=== PATIENT | female | born 1955 | race Caucasian/White ===

== ENCOUNTER 2019-02-04 16:25 | Outpatient (REF) | payer BC, SELFPAY ==
[2019-02-04 20:40] LABS: Absolute Basophil Count 0.03 k/cumm (0.0-0.2); Absolute Eosinophil Count 0.18 k/cumm (0.0-0.7); Absolute Lymphocyte Count 2.45 k/cumm (1.2-3.4); Absolute Monocyte Count 0.45 k/cumm (0.11-0.7); Absolute Neutrophil Count 3.37 k/cumm (1.2-6.7); Basophils % 0.5; Eosinophils % 2.8; HCT 43.3 % (36.0-46.0); HGB 14.3 g/dL (12.0-15.5); Lymphocytes % 37.8; Mean Corpuscular Hemoglobin 31.2 pg (27.0-33.0); Mean Corpuscular Volume 94.5 fL (80-95); Mean Platelet Volume 12.1 fL (8.0-11.0); Monocytes % 6.9; Platelet Count 203 x1000/uL (130-400); RBC 4.58 m/cumm (4.00-5.20); RBC Distribution Width 12.9 % (11.7-14.6); White Blood Cell Count 6.48 k/cumm (4.4-10.8)
[2019-02-04 21:06] LABS: ALT 172 U/L (14-59); AST 104 U/L (15-37); Alkaline Phosphatase 137 U/L (46-116); Anion Gap 7.9 mmol/L (3-11); BUN 14 mg/dL (7-18); Bilirubin, Total 0.4 mg/dL (0.2-1.0); CO2 31.1 mmol/L (21.0-32.0); Calcium 9.3 mg/dL (8.5-10.1); Chloride 104 mmol/L (98-107); Glucose 90 mg/dL (74-106); Potassium 4.5 mmol/L (3.5-5.1); Sodium 143 mmol/L (136-145); Total Protein 7.1 g/dL (6.4-8.2)
[2019-02-06 05:08] LABS: Vitamin D 25 Total 5.7 ng/ml (30-100)
[2019-02-07 10:07] LABS: Hepatitis C Ab w Rflx HCV PCR Negative (Negative)
== END 2019-02-04 16:45 ==
LOC: NCHCN 16:25
PROVIDERS: Nurse Practitioner Family; PCP Family Medicine; Visit Provider Internal Medicine
DX: R60.0 Localized edema (principal); I86.8 Varicose veins of other specified sites; Z11.59 Encounter for screening for other viral diseases
CPT/HCPCS: 80053; 82306; 86803; 84443; 85025

== ENCOUNTER 2019-02-12 02:14 | Outpatient (CLI) | payer BC, SELFPAY ==
--- NOTE | 2019-02-12 07:33 | DI.US_ITS ---
EXAM: US ABDOMEN CLINICAL HISTORY: ELEVATED TRANSAMINASES, R74.0 TECHNIQUE: Ultrasound performed using standard protocol. COMPARISON: No exams were available for comparison FINDINGS: The aorta is normal in diameter. The liver is normal in size and echogenicity. No focal liver lesi ons or biliary dilatation is seen. The gallbladder has a normal appearance, without evidence of ston es or wall thickening. A 4.9 centimeter cyst is noted on the right kidney. Left kidney is unremarka ble. The spleen is normal in size. The pancreas is unremarkable. There is no ascites. IMPRESSION: Right renal cyst, otherwise negative.
== END 2019-02-12 02:34 ==
PROVIDERS: PCP Family Medicine; Visit Provider Nurse Practitioner Family
DX: N28.1 Cyst of kidney, acquired (principal); R74.0 Nonspecific elevation of levels of transaminase and lactic acid dehydrogenase [LDH]
CPT/HCPCS: 76700

== ENCOUNTER 2019-02-26 08:53 | Outpatient (REF) | payer BC, SELFPAY ==
[2019-02-26 12:10] LABS: ALT 33 U/L (14-59); AST 21 U/L (15-37); Albumin 4.2 g/dL (3.4-5.0); Alkaline Phosphatase 105 U/L (46-116); Bilirubin, Total 0.7 mg/dL (0.2-1.0); Total Protein 7.3 g/dL (6.4-8.2)
[2019-02-26 13:57] LABS: Bilirubin, Direct 0.15 mg/dL (0.00-0.20)
== END 2019-02-26 09:13 ==
LOC: NCHCN 08:53
PROVIDERS: PCP Nurse Practitioner Family; Visit Provider Nurse Practitioner Family
DX: R74.0 Nonspecific elevation of levels of transaminase and lactic acid dehydrogenase [LDH] (principal)
CPT/HCPCS: 80076

== ENCOUNTER 2019-03-05 01:14 | Outpatient (CLI) | payer BC, SELFPAY ==
--- NOTE | 2019-03-05 16:19 | DI.MAMMO_ITS ---
EXAM: MAMMO SCREENING CLINICAL HISTORY: SCREENING Z12.39, FAM HX BREAST CANCER Z80.3 TECHNIQUE: Mammograms were interpreted according to the usual protocol including computer analysis w [employer] CAD system, tomosynthesis and C-view imaging. FINDINGS: The breasts are heterogeneously dense. No dominant mass or clumped microcalcification is identified in either breast. Current examination is compared with previous examinations including October and there has been no gross interval change in appearance in comparison with the previous studies. IMPRESSION: No specific evidence of malignancy at this time. Routine screening examinations are suggested at year ly intervals due to the family history of breast carcinoma. Category 1. Breast density, category C. BI-RADS Cat 1 - Negative. Breast Density - Category C - Heterogeneously dense.
== END 2019-03-05 01:34 ==
PROVIDERS: PCP Nurse Practitioner Family; Visit Provider Nurse Practitioner Family
DX: Z12.31 Encounter for screening mammogram for malignant neoplasm of breast (principal); Z80.3 Family history of malignant neoplasm of breast
CPT/HCPCS: 77063; 77067

== ENCOUNTER 2019-04-18 17:42 | Outpatient (REF) | payer BC, SELFPAY ==
[2019-04-21 07:18] LABS: Vitamin D 25 Total 20.3 ng/ml (30-100)
== END 2019-04-18 18:02 ==
LOC: NCHCN 17:42
PROVIDERS: PCP Nurse Practitioner Family; Visit Provider Nurse Practitioner Family
DX: E55.9 Vitamin D deficiency, unspecified (principal)
CPT/HCPCS: 82306

== ENCOUNTER 2020-03-08 15:46 | Outpatient (REF) | payer BC, SELFPAY ==
--- NOTE | 2020-03-08 14:30 | PAPFT_PTH ---
PATIENT: Lisha Neil LOC: [facility] U#:[id number] AGE/SX: 65/F ROOM: RE03/08/[address]: Na Mora : 1955 BED: DIS: 03/08/2020 SPEC #: [id number] RECD: 03/09/20 12:49 STATUS: RALF JEFF #: [id number] DUANE: 03/08/20 14:[address]: Na Mora DEPT: [facility] Cytology RECD BY: Amalia Crane Tissues: 1 - CX/ENDOCX FOR PAP SMEARS Procedures: PAP THIN PREP/UVM Screening HPV DNA PROBE Comments: [id number]
[2020-03-08 21:22] LABS: Abs Immature Grans 0.01 10^3/uL (0.0-0.06); Absolute Basophil Count 0.05 10^3/uL (0.0-0.2); Absolute Eosinophil Count 0.19 10^3/uL (0.0-0.7); Absolute Lymphocyte Count 2.56 10^3/uL (1.2-3.4); Absolute Monocyte Count 0.45 10^3/uL (0.1-0.8); Absolute Neutrophil Count 3.12 10^3/uL (1.2-6.7); Basophils % 0.8; HCT 41.3 % (36.0-46.0); HGB 13.6 g/dL (11.2-15.7); Immature Grans % 0.2; Lymphocytes % 40.1; MCH 31.2 pg (27.0-33.0); MCHC 32.9 % (32.0-36.0); MCV 94.7 fL (80-95); MPV 12.1 fL (8.0-11.0); Monocytes % 7.1; Neutrophils % 48.8; Nucleated RBC 0 %; Platelet Count 185 10^3/uL (130-400); RBC 4.36 10^6/uL (3.93-5.22); RDW 12.6 % (11.7-14.6); RDW-SD 43.9 fL; WBC 6.38 10^3/uL (4.4-10.8)
[2020-03-08 21:26] LABS: Iron 45 ug/dL (50-170); Total Iron Binding Capacity 246 ug/dL (250-450); Transferrin Sat 18 % (15-50)
[2020-03-08 21:36] LABS: ALT 32 U/L (14-59); AST 22 U/L (15-37); Albumin 4.4 g/dL (3.4-5.0); Alkaline Phosphatase 78 U/L (46-116); Anion Gap 9.4 mmol/L (3-11); BUN 12 mg/dL (7-18); Bilirubin, Total 0.6 mg/dL (0.2-1.0); CO2 28.6 mmol/L (21.0-32.0); CREATININE 0.7 mg/dL (0.55-1.02); Calcium 9.6 mg/dL (8.5-10.1); Chloride 103 mmol/L (98-107); Glucose 95 mg/dL (74-106); Sodium 141 mmol/L (136-145); TSH (W/Ref FT4) 0.63 uIU/mL (0.36-3.74); Total Protein 7.8 g/dL (6.4-8.2)
[2020-03-10 09:55] LABS: HIV-1/2 Ag & Ab Screen Negative (Negative)
== END 2020-03-08 16:06 ==
LOC: NCHCN 15:46
PROVIDERS: PCP Nurse Practitioner Family; Visit Provider Nurse Practitioner Family
DX: Z12.4 Encounter for screening for malignant neoplasm of cervix (principal); Z00.00 Encounter for general adult medical examination without abnormal findings; Z11.51 Encounter for screening for human papillomavirus (HPV); F43.0 Acute stress reaction; N39.3 Stress incontinence (female) (male); L65.9 Nonscarring hair loss, unspecified; R06.83 Snoring; E55.9 Vitamin D deficiency, unspecified; R60.0 Localized edema; Z80.3 Family history of malignant neoplasm of breast; Z11.4 Encounter for screening for human immunodeficiency virus [HIV]
CPT/HCPCS: 80053; 82306; 87389; 88142; 83540; 83550; 83735; 84443; 85025; 87624

== ENCOUNTER 2020-03-16 00:59 | Outpatient (CLI) | payer BC, SELFPAY ==
--- NOTE | 2020-03-16 15:45 | DI.MAMMO_ITS ---
EXAM: MG MAMMO SCREENING CLINICAL HISTORY: SCREENING,Z12.39, FAMILY H/O BREAST CA TECHNIQUE: Bilateral full field digital CC and MLO mammographic images were obtained with 3D tomosyn thesis and utilizing computer aided detection (CAD). COMPARISON: Available for comparison. FINDINGS: Masses/Architectural Distortion: None seen. Microcalcifications: No suspicious pleomorphic-type are seen. Skin Thickening/Nipple Retraction: None. IMPRESSION: 1. No significant interval change with no specific features of malignancy noted. 2. Unless there is more urgent need, screening mammography is recommended, as per [employer] guidelines. BI-RADS Category 1 - Negative Breast Density - Category C - Heterogeneously dense Breast density category C or D implies that the patient has dense breast tissue. Dense breast tissue is very common and is not abnormal but dense breast tissue can make it harder to find cancer on a ma mmogram. Also, dense breast tissue may increase their breast cancer risk. This information about the result of the mammogram report was provided to the patient to raise their awareness. Use this report when you speak with the patient about their risks for breast cancer, which includes their family hist ory. At that time, you may recommend for more screening tests (Ultrasound or MRI) as they might be us eful based on their risk. A negative radiographic report should not delay biopsy if a dominant or clinically suspicious mass is present. Up to ten percent of cancers are not identified on mammography. A negative report may reinforce clinical impression. Adenosis and dense breasts may obscure an underlying neoplasm. False positive reports average 6 to 10%. Patient will receive a letter notifying them of these results.
== END 2020-03-16 01:00 ==
LOC: DI 00:59
PROVIDERS: PCP Nurse Practitioner Family; Visit Provider Nurse Practitioner Family
DX: Z12.31 Encounter for screening mammogram for malignant neoplasm of breast (principal); Z80.3 Family history of malignant neoplasm of breast
CPT/HCPCS: 77063; 77067

== ENCOUNTER 2020-06-22 16:26 | Outpatient (REF) | payer BC, SELFPAY ==
[2020-06-22 21:02] LABS: Ferritin 61 ng/mL (8-252)
[2020-06-22 21:34] LABS: Iron 54 ug/dL (50-170); Total Iron Binding Capacity 216 ug/dL (250-450); Transferrin Sat 25 % (15-50)
[2020-06-24 04:37] LABS: Vitamin D 25 Total 28.5 ng/mL (30-100)
== END 2020-06-22 16:27 | disposition home or self-care (01) ==
LOC: NCHCN 16:26
PROVIDERS: PCP Nurse Practitioner Family; Visit Provider Nurse Practitioner Family
DX: E61.1 Iron deficiency (principal); E55.9 Vitamin D deficiency, unspecified
CPT/HCPCS: 82306; 82728; 83540; 83550

== ENCOUNTER 2020-09-03 12:45 | Outpatient (REF) | payer BC, SELFPAY ==
[2020-09-03 15:29] LABS: Iron 94 ug/dL (50-170)
== END 2020-09-03 12:46 | disposition home or self-care (01) ==
LOC: NCHCN 12:45
PROVIDERS: PCP Nurse Practitioner Family; Visit Provider Nurse Practitioner Family
DX: E61.1 Iron deficiency (principal); F43.0 Acute stress reaction; E55.9 Vitamin D deficiency, unspecified; R53.83 Other fatigue; L65.9 Nonscarring hair loss, unspecified
CPT/HCPCS: 83540

== ENCOUNTER 2021-04-12 15:56 | Outpatient (REF) | payer BC, SELFPAY ==
[2021-04-12 15:36] LABS: Abs Immature Grans 0.02 10^3/uL (0.0-0.06); Absolute Basophil Count 0.03 10^3/uL (0.0-0.2); Absolute Eosinophil Count 0.18 10^3/uL (0.0-0.7); Absolute Lymphocyte Count 2.34 10^3/uL (1.2-3.4); Absolute Monocyte Count 0.51 10^3/uL (0.1-0.8); Absolute Neutrophil Count 3.61 10^3/uL (1.2-6.7); Basophils % 0.4; Eosinophils % 2.7; HCT 40.6 % (36.0-46.0); HGB 13.3 g/dL (11.2-15.7); Immature Grans % 0.3; MCH 31.7 pg (27.0-33.0); MCHC 32.8 % (32.0-36.0); MCV 96.9 fL (80-95); MPV 12.8 fL (8.0-11.0); Monocytes % 7.6; Nucleated RBC 0 %; Platelet Count 209 10^3/uL (130-400); RBC 4.19 10^6/uL (3.93-5.22); RDW 12.8 % (11.7-14.6); RDW-SD 45.9 fL; WBC 6.69 10^3/uL (4.4-10.8)
[2021-04-12 15:53] LABS: Iron 93 ug/dL (50-170); Total Iron Binding Capacity 234 ug/dL (250-450); Transferrin Sat 40 % (15-50)
[2021-04-12 16:05] LABS: Calculated LDL 115 mg/dL (<100); Cholesterol 179 mg/dL (<200); Ferritin 41 ng/mL (8-252); HDL Cholesterol 31 mg/dL (40-60); Triglyceride 165 mg/dL (<150)
[2021-04-14 04:46] LABS: Vitamin D 25 Total 23.4 ng/mL (30-100)
== END 2021-04-12 15:57 | disposition home or self-care (01) ==
LOC: NCHCN 15:56
PROVIDERS: PCP Nurse Practitioner Family; Visit Provider Nurse Practitioner Family
DX: Z00.00 Encounter for general adult medical examination without abnormal findings (principal); E61.1 Iron deficiency; E55.9 Vitamin D deficiency, unspecified; R53.83 Other fatigue; N20.1 Calculus of ureter; N39.3 Stress incontinence (female) (male)
CPT/HCPCS: 80061; 82306; 82728; 83540; 83550; 85025

== ENCOUNTER 2021-05-09 01:01 | Outpatient (CLI) | payer BC, SELFPAY ==
--- NOTE | 2021-05-09 17:00 | DI.MAMMO_ITS ---
Exam(s) MAMMO SCREENING EXAM: MAMMO SCREENING CLINICAL HISTORY: SCREENING, Z12.39; FAMILY H/O BREAST CA, Z80.3. TECHNIQUE: Bilateral full field digital CC and MLO mammographic images were obtained with 3D tomosyn thesis and utilizing computer aided detection (CAD). COMPARISON: Prior mammograms were reviewed, the most recent being March 2020. There is significant family history here. Mother was diagnosed premenopausal breast cancer. FINDINGS: The fibroglandular tissue pattern is again noted be moderately dense, this somewhat decreasing the se nsitivity of the mammogram for finding hidden underlying lesions. There are no new spiculated masses nor malignant appearing microcalcification groups. Benign microcalcifications are again noted bilaterally. There is no significant architectural distortion nor skin thickening-retraction. IMPRESSION: Dense bilateral fibroglandular tissue. No obvious radiographic evidence of malignancy nor significan t change compared to prior mammograms. Given the density of this patient's fibroglandular tissue and significant family history, I recommend that she undergo bilateral breast ultrasound screening. BI-RADS Category 2 - Benign Findings Breast Density - Category C - Heterogeneously dense Breast density Category C or D implies that the patient has dense breast tissue. Dense breast tissue can make it harder to find cancer on a mammogram. Dense breast tissue is also associated with an incr eased risk of breast cancer. This information about the result of the mammogram report was provided to the patient to raise their awareness. Use this report when you speak with the patient about their risks for breast cancer, which includes their family history. At that time, you may recommend additional screening tests (Ultrasoun d or MRI) as these tests may add significant information. A negative radiographic report should not delay biopsy if a dominant or clinically suspicious mass is present. Up to ten percent of cancers are not identified on mammography. A negative report may reinforce clinical impression. Adenosis and dense breasts may obscure an underlying neoplasm. False positive reports average 6 to 10%. Patient will receive a letter notifying them of these results.
== END 2021-05-09 01:21 ==
PROVIDERS: PCP Nurse Practitioner Family; Visit Provider Nurse Practitioner Family
DX: Z12.31 Encounter for screening mammogram for malignant neoplasm of breast (principal); R92.8 Other abnormal and inconclusive findings on diagnostic imaging of breast
CPT/HCPCS: 77063; 77067

== ENCOUNTER 2022-06-02 00:03 | Outpatient (CLI) | payer BC, SELFPAY ==
--- NOTE | 2022-06-02 15:38 | DI.MAMMO_ITS ---
Exam(s) US BREAST RT LIMITED MG MAMMO SCREENING EXAM: MAMMO SCREENING CLINICAL HISTORY: SCREENING, Z12.39,FAMILY H/O BREAST CA,Z80.3 TECHNIQUE: Mammograms were interpreted according to the usual protocol including computer analysis w ith CAD system, tomosynthesis and C-view imaging. COMPARISON: Mammograms dated 2012 through 2021 Right breast ultrasound 02 June and 02 December 2021 FINDINGS: The breasts are composed of heterogeneously dense fibroglandular densities, Breast Density category C . No suspicious masses or suspicious microcalcifications are seen. No skin thickening or abnormal axillary lymph nodes are seen. There has been no significant change from prior exams. Right breast ultrasound: Stable appearance of ovoid hypoechoic lesion in the upper outer quadrant of the right breast, 4 cm fr om the nipple, now measured at 6 x 3 x 6 millimeters. IMPRESSION: BI-RADS Cat 2 - Benign Findings Yearly screening mammography is recommended. Breast Density Category C, heterogeneously Dense. The mammogram demonstrates the patient's breast tissue is dense. Dense breast tissue is very common a nd is not abnormal but dense breast tissue can make it harder to find cancer on a mammogram. Also, de nse breast tissue may increase breast cancer risk. This information about the result of the mammogram report was provided to the patient to raise their awareness. Use this report when you speak with the patient about their risks for breast cancer, which includes their family history. At that time, you may recommend additional screening tests (Ultrasound or MRI) as they might be useful based on their r isk. A negative radiographic report should not delay biopsy if a dominant or clinically suspicious mass is present. Up to ten percent of cancers are not identified on mammography. A negative report may reinforce clinical impression. Adenosis and dense breasts may obscure an underlying neoplasm. False positive reports average 6 to 10%.
== END 2022-06-02 00:23 ==
LOC: DI 00:03
PROVIDERS: PCP Nurse Practitioner Family; Visit Provider Nurse Practitioner Family
DX: R92.8 Other abnormal and inconclusive findings on diagnostic imaging of breast; Z80.3 Family history of malignant neoplasm of breast
CPT/HCPCS: 76642; 77063; 77067

== ENCOUNTER 2022-11-14 16:43 | Outpatient (REF) | payer BC, SELFPAY ==
[2022-11-14 20:50] LABS: Abs Immature Grans 0.01 10^3/uL (0.0-0.06); Absolute Basophil Count 0.06 10^3/uL (0.0-0.2); Absolute Eosinophil Count 0.21 10^3/uL (0.0-0.7); Absolute Lymphocyte Count 2.48 10^3/uL (1.2-3.4); Absolute Monocyte Count 0.39 10^3/uL (0.1-0.8); Absolute Neutrophil Count 2.63 10^3/uL (1.2-6.7); Eosinophils % 3.6; HCT 42.8 % (36.0-46.0); HGB 14.1 g/dL (11.2-15.7); Immature Grans % 0.2; Lymphocytes % 42.9; MCH 31.2 pg (27.0-33.0); MCHC 32.9 % (32.0-36.0); MCV 95 fL (80-95); MPV 11.8 fL (8.0-11.0); Monocytes % 6.7; Neutrophils % 45.6; Platelet Count 178 10^3/uL (130-400); RBC 4.52 10^6/uL (3.93-5.22); RDW 12.3 % (11.7-14.6); RDW-SD 42.9 fL; WBC 5.78 10^3/uL (4.4-10.8)
[2022-11-14 21:08] LABS: Anion Gap 8.3 mmol/L (3-11); BUN 22 mg/dL (7-18); CO2 27.7 mmol/L (21.0-32.0); CREATININE 0.7 mg/dL (0.55-1.02); Calcium 9.6 mg/dL (8.5-10.1); Chloride 105 mmol/L (98-107); Estimated GFR 95.92 (mL/min/1.73m2); Glucose 81 mg/dL (74-106); Potassium 3.8 mmol/L (3.5-5.1); Sodium 141 mmol/L (136-145); TSH (W/Ref FT4) 0.88 uIU/mL (0.36-3.74)
[2022-11-14 21:15] LABS: Iron 94 ug/dL (50-170); Total Iron Binding Capacity 240 ug/dL (250-450); Transferrin Sat 39 % (15-50)
[2022-11-14 21:54] LABS: Vitamin D 25 Total 32.8 ng/mL (30-100)
[2022-11-14 22:34] LABS: Ferritin 48 ng/mL (8-252); Vitamin B12 506 pg/mL (193-986)
== END 2022-11-14 16:44 | disposition home or self-care (01) ==
LOC: NCHCN 16:43
PROVIDERS: PCP Nurse Practitioner Family; Visit Provider Nurse Practitioner Family
DX: Z00.00 Encounter for general adult medical examination without abnormal findings (principal); R47.01 Aphasia; E55.9 Vitamin D deficiency, unspecified; E61.1 Iron deficiency; L65.9 Nonscarring hair loss, unspecified; I86.8 Varicose veins of other specified sites; R00.2 Palpitations; N20.1 Calculus of ureter
CPT/HCPCS: 80048; 82306; 82607; 82728; 83540; 83550; 84443; 85025

== ENCOUNTER → 2022-12-25 02:25 | Outpatient (CLI) | payer BC, SELFPAY ==
--- NOTE | 2022-12-25 | DI.DEXA_ITS ---
Exam(s) XR DEXA BONE DENSITY W/WO YI EXAM: XR DEXA BONE DENSITY W/WO YI CLINICAL HISTORY: POSTMENOPAUSAL STATE, SCREENING, Z78.0 TECHNIQUE: Domino Horizon C densitometer analysis of left hip, lumbar spine and left forearm. Lat eral survey image of the thoracic and lumbar spine. COMPARISON: No exams were available for comparison FINDINGS: Lateral view of the thoracic and lumbar spine shows no evidence of compression fractures. Bone mineral density measurements of the lumbar spine correspond to a total T-score of -1.2, in the osteopenic range. Bone mineral density measurements of the left hip correspond to a total T-score of -0.9. The femora l neck T-score is -1.7, in the osteopenic range.. Theleft forearm bone mineral density measurements correspond to a T-score of the distal 3rd of -1.1, in the osteopenic range. . IMPRESSION: Osteopenia of the spine, hip and forearm.
== END ==
PROVIDERS: PCP Nurse Practitioner Family; Visit Provider Nurse Practitioner Family
DX: Z13.820 Encounter for screening for osteoporosis (principal); Z78.0 Asymptomatic menopausal state; M85.89 Other specified disorders of bone density and structure, multiple sites
CPT/HCPCS: 77080

== ENCOUNTER → 2023-04-05 03:09 | Outpatient (CLI) | payer BC, SELFPAY ==
--- NOTE | 2023-04-05 | DI.MAMMO_ITS ---
Exam(s) MG MAMMO DIAGNOSTIC BI US BREAST LT LIMITED EXAM: MG MAMMO DIAGNOSTIC BI, left breast ultrasound CLINICAL HISTORY: PAIN LT BREAST, N64.4, MASTODYNIA. COMPARISON: US US BREAST LT LIMITED from 04/05/2023 TECHNIQUE: Craniocaudal and mediolateral oblique Full Field Digital Mammography views of both breast s with Computer Aided Diagnosis followed by Tomosynthesis and left breast ultrasound. FINDINGS: Mammography/Tomosynthesis: Masses/Architectural Distortion: None seen. Microcalcifications: No suspicious pleomorphic-type are seen. Skin Thickening/Nipple Retraction: None. Left breast US: Echotexture: Normal appearance of the glandular tissue. Shadowing: No suspicious foci. Cyst: None. Solid lesions: None seen. Ductal dilation: None. IMPRESSION: 1. No evidence of malignancy is noted. 2. Unless there is more urgent need, follow-up screening mammography is recommended, as per [employer] guidelines. BI-RADS Category 1 - Negative Breast Density - Category C - Heterogeneously dense Breast density category C or D implies that the patient has dense breast tissue. Dense breast tissue is very common and is not abnormal but dense breast tissue can make it harder to find cancer on a ma mmogram. Also, dense breast tissue may increase their breast cancer risk. This information about the result of the mammogram report was provided to the patient to raise their awareness. Use this report when you speak with the patient about their risks for breast cancer, which includes their family hist ory. At that time, you may recommend for more screening tests (Ultrasound or MRI) as they might be us eful based on their risk. A negative radiographic report should not delay biopsy if a dominant or clinically suspicious mass is present. Up to ten percent of cancers are not identified on mammography. A negative report may reinforce clinical impression. Adenosis and dense breasts may obscure an underlying neoplasm. False positive reports average 6 to 10%. Patient will receive a letter notifying them of these results.
== END ==
PROVIDERS: PCP Nurse Practitioner Family; Visit Provider Nurse Practitioner Family
DX: Z12.31 Encounter for screening mammogram for malignant neoplasm of breast (principal); N64.4 Mastodynia; R92.8 Other abnormal and inconclusive findings on diagnostic imaging of breast
CPT/HCPCS: 76642; 77062; 77066; G0279

== ENCOUNTER 2023-12-27 15:01 | Outpatient (REF) | payer BC, SELFPAY ==
[2023-12-27 22:11] LABS: ALT 35 U/L (14-59); AST 28 U/L (15-37); Albumin 4.2 g/dL (3.4-5.0); Alkaline Phosphatase 114 U/L (46-116); Anion Gap 10.3 mmol/L (3-11); BUN 20 mg/dL (7-18); Bilirubin, Total 0.43 mg/dL (0.2-1.0); CO2 27.7 mmol/L (21.0-32.0); CREATININE 0.7 mg/dL (0.55-1.02); Calcium 9.3 mg/dL (8.5-10.1); Chloride 105 mmol/L (98-107); Estimated GFR 95.32 (mL/min/1.73m2); Glucose 86 mg/dL (74-106); Potassium 4.7 mmol/L (3.5-5.1); Sodium 143 mmol/L (136-145); TSH (W/Ref FT4) 1.05 uIU/mL (0.36-3.74); Total Protein 7.8 g/dL (6.4-8.2)
[2023-12-27 22:30] LABS: Iron 43 ug/dL (50-170); Total Iron Binding Capacity 246 ug/dL (250-450); Transferrin Sat 17 % (15-50)
[2023-12-27 22:58] LABS: Ferritin 66 ng/mL (8-252); Vitamin D 25 Total 29.2 ng/mL (30-100)
[2023-12-28 18:54] LABS: Hepatitis C Ab w Rflx HCV PCR Negative (Negative)
== END 2023-12-27 15:02 | disposition home or self-care (01) ==
LOC: NCHCN 15:01
PROVIDERS: PCP Nurse Practitioner Family; Visit Provider Nurse Practitioner Family
DX: R07.89 Other chest pain (principal); E61.1 Iron deficiency; E55.9 Vitamin D deficiency, unspecified; Z00.00 Encounter for general adult medical examination without abnormal findings
CPT/HCPCS: 80053; 82306; 86803; 82728; 83540; 83550; 84443; 85025

== ENCOUNTER 2024-01-02 15:20 | Outpatient (REF) | payer BC, SELFPAY ==
[2024-01-02 19:14] LABS: HCT 44.2 % (36.0-46.0); HGB 14.1 g/dL (11.2-15.7); MCH 30.7 pg (27.0-33.0); MCHC 31.9 % (32.0-36.0); MCV 96 fL (80-95); Platelet Count 198 10^3/uL (130-400); RBC 4.59 10^6/uL (3.93-5.22); RDW 12.5 % (11.7-14.6); RDW-SD 43.9 fL; WBC 7.12 10^3/uL (4.4-10.8)
== END 2024-01-02 15:21 | disposition home or self-care (01) ==
LOC: NCHCN 15:20
PROVIDERS: PCP Nurse Practitioner Family; Visit Provider Nurse Practitioner Family
DX: R53.83 Other fatigue (principal)
CPT/HCPCS: 85027

== ENCOUNTER 2024-04-08 02:20 | Outpatient (CLI) | payer BC, SELFPAY ==
--- NOTE | 2024-04-08 12:34 | DI.MAMMO_ITS ---
Exam(s) MAMMO SCREENING EXAM: MAMMO SCREENING CLINICAL HISTORY: SCREENING MAMMO Z12.31. TECHNIQUE: Bilateral full field digital CC and MLO mammographic images were obtained with 3D tomosyn thesis and utilizing computer aided detection (CAD). COMPARISON: Prior mammograms were reviewed. Prior ultrasound reviewed FINDINGS: Fibroglandular tissue pattern is again noted be moderately dense, this somewhat decreasing the sensit ivity of the mammogram for finding hidden underlying lesions. There are no obvious new spiculated masses nor new malignant appearing microcalcification groups. There is no significant architectural distortion nor skin thickening-retraction. IMPRESSION: Dense bilateral fibroglandular tissue. No obvious radiographic evidence of malignancy. BI-RADS Category 1 - Negative Breast Density - Category C - Heterogeneously dense Breast density Category C or D implies that the patient has dense breast tissue. Dense breast tissue can make it harder to find cancer on a mammogram. Dense breast tissue is also associated with an incr eased risk of breast cancer. This information about the result of the mammogram report was provided to the patient to raise their awareness. Use this report when you speak with the patient about their risks for breast cancer, which includes their family history. At that time, you may recommend additional screening tests (Ultrasoun d or MRI) as these tests may add significant information. A negative radiographic report should not delay biopsy if a dominant or clinically suspicious mass is present. Up to ten percent of cancers are not identified on mammography. A negative report may reinforce clinical impression. Adenosis and dense breasts may obscure an underlying neoplasm. False positive reports average 6 to 10%. Patient will receive a letter notifying them of these results.
== END 2024-04-08 02:40 ==
PROVIDERS: PCP Nurse Practitioner Family; Visit Provider Nurse Practitioner Family
DX: Z12.31 Encounter for screening mammogram for malignant neoplasm of breast (principal); R92.333 Mammographic heterogeneous density, bilateral breasts
CPT/HCPCS: 77063; 77067

== ENCOUNTER 2025-01-08 13:52 | Outpatient (REF) | payer BC, SELFPAY ==
[2025-01-08 21:15] LABS: Abs Immature Grans 0.01 10^3/uL (0.0-0.06); HCT 43.4 % (36.0-46.0); HGB 14.0 g/dL (11.2-15.7); Immature Grans % 0.2 %; MCH 30.7 pg (27.0-33.0); MCHC 32.3 % (32.0-36.0); MCV 95 fL (80-95); MPV 12.1 fL (8.0-11.0); Platelet Count 177 10^3/uL (130-400); RBC 4.56 10^6/uL (3.93-5.22); RDW 12.5 % (11.7-14.6); RDW-SD 44.3 fL; WBC 6.27 10^3/uL (4.4-10.8)
[2025-01-08 21:34] LABS: Iron 96 ug/dL (50-170); Total Iron Binding Capacity 253 ug/dL (250-425); Transferrin Sat 38 % (15-50)
[2025-01-08 21:37] LABS: Vitamin D 25 Total 25 ng/mL (30-100)
[2025-01-08 21:39] LABS: Hemoglobin A1C 5.3 % (<5.7)
[2025-01-08 21:43] LABS: ALT 48 U/L (10-49); AST 40 U/L (<34); Albumin 4.4 g/dL (3.2-5.0); Alkaline Phosphatase 102 U/L (46-116); Anion Gap 7.7 mmol/L (3-11); BUN 16 mg/dL (9-23); Bilirubin, Total 0.60 mg/dL (0.2-1.2); CO2 28.3 mmol/L (20.0-31.0); Calcium 9.7 mg/dL (8.3-10.6); Chloride 106 mmol/L (98-107); Cholesterol 208 mg/dL (<200); Glucose 89 mg/dL (74-106); HDL Cholesterol 44 mg/dL (>40); Potassium 4.5 mmol/L (3.5-5.1); Sodium 142 mmol/L (136-145); Total Protein 7.0 g/dL (5.7-8.2)
== END 2025-01-08 13:53 | disposition home or self-care (01) ==
LOC: NCHCN 13:52
PROVIDERS: PCP Nurse Practitioner Family; Visit Provider Nurse Practitioner Family
DX: Z00.00 Encounter for general adult medical examination without abnormal findings (principal); E55.9 Vitamin D deficiency, unspecified; E61.1 Iron deficiency; R60.0 Localized edema
CPT/HCPCS: 80053; 80061; 82306; 83036; 83540; 83550; 85025